=== PATIENT | male | born 1935 | race Two or more races ===

== ENCOUNTER 2018-12-03 14:17 | Outpatient (CLI) | payer OTHER ==
[~2018-12-03 14:17] MED LIST: PROTONIX40 M1 PO
== END 2018-12-03 14:28 | disposition home or self-care (01) ==
LOC: RAD 14:17
DX: M25.572 Pain in left ankle and joints of left foot (principal); M54.2 Cervicalgia; M54.6 Pain in thoracic spine

== ENCOUNTER 2019-02-23 09:29 | Emergency (ER) | payer OTHER ==
[~2019-02-23] VITALS: Ht 170.2 cm; Wt 77.6 kg
[2019-02-23] MEDS ORDERED: SYNTHROID75 MCG (09:48)
[2019-02-23] MEDS ORDERED: NIFE60TA3 (09:49)
== END 2019-02-23 11:15 | disposition home or self-care (01) ==
LOC: ER 09:29
DX: L23.89 Allergic contact dermatitis due to other agents (principal)

== ENCOUNTER → 2019-08-21 08:32 | Outpatient (CLI) | payer OTHER ==
[~2019-08-21 08:32] MED LIST changes: +NIFE60TA3; +SYNTHROID75 MCG
== END | disposition home or self-care (01) ==
LOC: LAB 08:32
DX: E21.2 Other hyperparathyroidism (principal); E88.89 Other specified metabolic disorders; E55.9 Vitamin D deficiency, unspecified; M85.88 Other specified disorders of bone density and structure, other site; E56.1 Deficiency of vitamin K; M81.8 Other osteoporosis without current pathological fracture

== ENCOUNTER 2024-06-17 08:33 | Outpatient (CLI) | payer OTHER ==
[~2024-06-17 08:33] MED LIST changes: +COZAAR25 MG PO; +STIOLTO RESPIMAT4 G2 IH; +TERAZOSIN HCL5 MG PO
== END 2024-06-17 08:34 | disposition home or self-care (01) ==
LOC: NUCLEAR 08:33
PROVIDERS: ATTEND Orthopaedic Surgery
DX: M79.604 Pain in right leg (principal)

== ENCOUNTER 2024-09-24 09:17 | Outpatient (CLI) | payer OTHER | END 2024-09-24 09:18 | disposition home or self-care (01) | LOC: NUCLEAR 09:17 | PROVIDERS: ATTEND Internal Medicine | DX: I82.401 Acute embolism and thrombosis of unspecified deep veins of right lower extremity (principal) ==

== ENCOUNTER 2024-09-24 10:56 | Outpatient (CLI) | payer OTHER ==
[2024-09-28 10:04] LABS: HOMOCYSTEINE 8.4 umol/L (0.0-21.3)
[2024-09-28 14:04] LABS: ANTI CARDIO IGA < 9 APL U/mL (0-11); ANTI CARDIO IGG 10 GPL U/mL (0-14); ANTI CARDIO IGM 9 MPL U/mL (0-12)
== END 2024-09-24 10:57 | disposition home or self-care (01) ==
LOC: LAB 10:56
PROVIDERS: ATTEND Orthopaedic Surgery
DX: Z83.2 Family history of diseases of the blood and blood-forming organs and certain disorders involving the immune mechanism (principal); Z86.72 Personal history of thrombophlebitis

== ENCOUNTER 2024-11-11 13:52 | Outpatient (CLI) | payer OTHER | END 2024-11-11 13:53 | disposition home or self-care (01) | LOC: NUCLEAR 13:52 | PROVIDERS: ATTEND Orthopaedic Surgery | DX: I80.291 Phlebitis and thrombophlebitis of other deep vessels of right lower extremity (principal); I80.221 Phlebitis and thrombophlebitis of right popliteal vein ==

== ENCOUNTER 2025-01-23 13:13 | Emergency (ER) | payer OTHER ==
[~2025-01-23] VITALS: Ht 170.2 cm; Wt 83.0 kg
[2025-01-23] MEDS ORDERED: SYNTHROID88 MCG PO (13:51)
[2025-01-23] MEDS ORDERED: LOSARTAN-HCTZ1 EACH PO (13:51)
[2025-01-23] MEDS ORDERED: ELIQUIS2.5 MG PO (13:52)
[2025-01-23] MEDS ORDERED: FAMOTIDINE/PF 20 MG/2 ML VIAL IV ONE (15:15)
[2025-01-23] MEDS ORDERED: 0.9 % SODIUM CHLORIDE 500 ML IV ONE (15:15)
[2025-01-23] MEDS ORDERED: FAMOTIDINE/PF 20 MG/2 ML VIAL ONE (15:16)
[2025-01-23] MEDS ORDERED: DIATRIZOATE MEGLUMINE, SODIUM 30 ML BOTTLE ONE (15:20)
[2025-01-23 16:04] LABS: BASO % 0.3 % (0.1-1.2); EOS # 0.07 (0.04-0.54); EOS % 0.9 % (0.7-7.0); HEMATOCRIT 34.3 % (40.1-51.0); HEMOGLOBIN 11.3 g/dL (13.7-17.5); LYMPH # 1.54 (1.18-3.74); LYMPH % 19.3 % (19.3-53.1); MEAN CORPUSCULAR HEMOGLOBIN 31.2 pg (25.6-32.2); MONO # 0.75 (0.24-0.82); MONO % 9.4 % (4.7-12.5); NEUT # 5.59 (1.56-6.13); NEUT % 69.7 % (34.0-71.1); PLATELET COUNT 163 K/uL (163-369); RED BLOOD COUNT 3.62 M/uL (4.63-6.08); RED CELL DISTRIBUTION WIDTH 14.8 % (11.6-14.4)
[2025-01-23 16:14] LABS: INR 1.07; PARTIAL THROMBOPLASTIN TIME 28.5 SECONDS (22.0-34.0); PROTHROMBIN TIME 11.6 SECONDS (9.0-11.5)
[2025-01-23 16:18] LABS: ALBUMIN 3.6 gm/dL (3.4-5.0); BILIRUBIN TOTAL 1.54 mg/dL (0.3-1.2); CALCIUM 8.4 mg/dL (8.5-10.1); CREATININE SERUM 1.27 mg/dL (0.70-1.30); GFR 53.64; GLOBULINA 3.5 G/DL (2.4-3.5); POTASSIUM 3.61 mEq/L (3.5-5.1); TOTAL PROTEIN 7.1 gm/dL (6.4-8.2)
[2025-01-23 17:13] LABS: PH,URINE 5.5 (5.0-8.0); URINE APPEARANCE Clear; URINE BILIRRUBIN Negative (NEGATIVE); URINE BLOOD Negative; URINE COLOR Yellow; URINE GLUCOSE Negative (NEGATIVE); URINE KETONE Negative (NEGATIVE); URINE LEUKOCYTE Negative; URINE NITRATE Negative; URINE PROTEIN Negative (NEGATIVE); URINE UROBILINOGEN 0.2 E.U./dl
[2025-01-23 17:17] LABS: URINE BACTERIA 8.5 uL (0.0-1933); URINE RBC 2.9 uL (0.0-20.8)
[2025-01-23 17:21] LABS: URINE EPITHELIAL CELLS 0.6 uL (0.0-38.8); URINE WBC 1.1 uL (0.0-23.2)
[2025-01-23] MEDS ORDERED: DICY20TA PO (19:35)
[2025-01-23] MEDS ORDERED: MIRALAX17 GM PO (19:35)
[2025-01-23] MEDS ORDERED: CARAFATE1 GM PO (19:39)
== END 2025-01-23 19:43 ==
LOC: ER 13:19
PROVIDERS: Emergency Medicine
DX: K57.30 Diverticulosis of large intestine without perforation or abscess without bleeding (principal); N28.1 Cyst of kidney, acquired; N40.0 Benign prostatic hyperplasia without lower urinary tract symptoms; I10 Essential (primary) hypertension; E03.9 Hypothyroidism, unspecified
CPT/HCPCS: 36415; 74176; 96365; 96366; 99283; J3490

== ENCOUNTER 2025-06-27 15:38 | Emergency (ER) | payer OTHER ==
[~2025-06-27] VITALS: Ht 175.3 cm; Wt 83.5 kg
[~2025-06-27 15:38] MED LIST changes: +CARAFATE1 GM PO; +DICY20TA PO; +ELIQUIS2.5 MG PO; +LOSARTAN-HCTZ1 EACH PO; +MIRALAX17 GM PO; +SYNTHROID88 MCG PO
[2025-06-27 17:52] LABS: BASO % 0.3 % (0.1-1.2); EOS # 0.11 (0.04-0.54); EOS % 1.6 % (0.7-7.0); LYMPH # 1.61 (1.18-3.74); LYMPH % 23.1 % (19.3-53.1); MEAN PLATELET VOLUME 11.30 fl (9.4-12.4); MONO # 0.62 (0.24-0.82); MONO % 8.9 % (4.7-12.5); NEUT # 4.58 (1.56-6.13); NEUT % 65.7 % (34.0-71.1); RED CELL DISTRIBUTION WIDTH 15.6 % (11.6-14.4)
[2025-06-27 18:47] LABS: ALT/SGPT 30.0 U/L (12-78); AST/SGOT 17.0 U/L (15-37); BILIRUBIN TOTAL 0.95 mg/dL (0.3-1.2); BUN CREA RATIO 19.0 (7.0-25.0); CREATININE SERUM 1.74 mg/dL (0.70-1.30); GFR 37.21; GLOBULINA 3.3 G/DL (2.4-3.5); GLUCOSE FASTING 110.0 mg/dL (65-100); OSMOLALITY SERUM 293.0 MOSM/KG (275-295); PHOSPHOKINASE CREATININE 110.0 U/L (39-308)
[2025-06-27 18:49] LABS: URINE APPEARANCE Clear; URINE BILIRRUBIN Negative (NEGATIVE); URINE BLOOD Negative; URINE COLOR Yellow; URINE GLUCOSE Negative (NEGATIVE); URINE KETONE Trace (NEGATIVE); URINE LEUKOCYTE Negative; URINE NITRATE Negative; URINE PROTEIN Trace (NEGATIVE); URINE UROBILINOGEN 0.2 E.U./dl
[2025-06-27 18:54] LABS: URINE BACTERIA 7.1 uL (0.0-1933); URINE RBC 18.3 uL (0.0-20.8); URINE WBC 3.3 uL (0.0-23.2)
[2025-06-27 18:59] LABS: URINE CAST 0.14 uL (0.0-1.40); URINE EPITHELIAL CELLS 1.0 uL (0.0-38.8)
[2025-06-27 18:59] LABS: TSH 5.54 uIU/mL (0.358-3.74)
[2025-06-27] MEDS ORDERED: 0.9 % SODIUM CHLORIDE 1,000 ML IV ONE (19:45)
== END 2025-06-28 03:59 | disposition left against medical advice (07) ==
LOC: ER 15:39
PROVIDERS: General Practice
DX: E86.0 Dehydration (principal); I10 Essential (primary) hypertension; N40.0 Benign prostatic hyperplasia without lower urinary tract symptoms; E03.8 Other specified hypothyroidism; Z86.72 Personal history of thrombophlebitis
CPT/HCPCS: 36415; 70450; 71045; 96365; 96366; 99284; J7030